=== PATIENT | male | born 1955 | race Caucasian/White ===

== ENCOUNTER 2017-03-29 07:11 | Observation (INO) | payer OTHER ==
[2017-03-29] VITALS (8 sets, daily range): BP systolic 151–169; BP diastolic 88–101; PULSE 61–67; RESP 16–18; TEMP 97.6–98.4; O2SAT 96–100
[~2017-03-29] VITALS: Ht 180.3 cm; Wt 78.6 kg
[2017-03-29 07:35] LABS: AUTOMATED NEUTROPHIL # 2.5 TH/MM3 (1.8-7.7); BASOPHIL % 0.7 % (0.0-2.0); EOSINOPHIL # 0.1 TH/MM3 (0-0.4); HEMATOCRIT 44.3 % (39.0-51.0); HEMOGLOBIN 14.7 GM/DL (13.0-17.0); LYMPH % 32.1 % (9.0-44.0); LYMPHOCYTE # 1.5 TH/MM3 (1.0-4.8); MEAN CELL VOLUME 99.5 FL (80.0-100.0); MEAN CORPUSCULAR HGB CONC 33.2 % (32.0-36.0); MEAN PLATELET VOLUME 7.6 FL (7.0-11.0); MONO % 10.4 % (0.0-8.0); MONOCYTE # 0.5 TH/MM3 (0-0.9); NEUT % 54.8 % (16.0-70.0); PLATELET COUNT 243 TH/MM3 (150-450); RED BLOOD COUNT 4.45 MIL/MM3 (4.50-5.90); RED CELL DISTRIBUTION WIDTH 12.5 % (11.6-17.2); WHITE BLOOD COUNT 4.6 TH/MM3 (4.0-11.0)
--- NOTE | 2017-03-29 07:37 | RADRPT ---
EXAM DATE/TIME: 03/29/2017 07:18 [place] COMPARISON: No previous studies available for comparison. INDICATIONS : Chest discomfort. MEDICAL HISTORY : None. SURGICAL HISTORY : None. ENCOUNTER: Initial ACUITY: 1 day PAIN SCORE: 3/10 LOCATION: Bilateral chest FINDINGS: A single view of the chest demonstrates the lungs to be symmetrically aerated without evidence of mas s, infiltrate or effusion. The cardiomediastinal contours are unremarkable. Osseous structures are intact. CONCLUSION: No acute disease. Abel Chawla MD on March 29, 2017 at 7:35 Board Certified Radiologist. This report was verified electronically.
[2017-03-29 07:44] LABS: CHLORIDE 102 MEQ/L (98-107); SODIUM (NA) 137 MEQ/L (136-145)
[2017-03-29 07:46] LABS: CALCIUM 8.9 MG/DL (8.5-10.1)
[2017-03-29 07:47] LABS: BLOOD UREA NITROGEN 19 MG/DL (7-18); GLUCOSE,RANDOM 102 MG/DL (74-106)
[2017-03-29 07:50] LABS: CREATININE 0.93 MG/DL (0.60-1.30); GLOMERULAR FILTRATION RATE 83 ML/MIN (>89)
[2017-03-29 07:55] LABS: TROPONIN I LESS THAN 0.02 NG/ML (0.02-0.05)
--- NOTE | 2017-03-29 07:55 | PD ---
HPI Chief Complaint: Chest Pain Time Seen by Provider: 07:26 Travel History International Travel<30 days: No Contact w/Intl Traveler<30days: No Traveled to known affect area: No History of Present Illness HPI 62 year old male in ED presents with left sided non radiating chest pain with sudden onset one hour prior to arrival, now resolved associated with tingling in bilateral fingers. Patient was standing in the shower this morning when he felt a "sudden punch to his chest" and mildly short of breathe. The pain lasted several seconds and he was able to drive himself to the ER. He reports one similar episode in his 30s in which he went to the ER with no concerning findings at that time. He reports having chest congestion with sneezing and dry cough this week. He denies vomiting, fevers, abd pain, recent travel, and leg swelling. He is a non smoker, smoker drinking. He did not receive flu shot this year. Pain is now mostly gone, about a 1-2 out of 10. Risk Factors:[None] Modifying Factors:[None] Associated sign and symptoms:chest pain with shortness of breathe and nausea, no vomiting, no diaphoresis, no fevers. PFSH Past Medical History Medical History: Denies Significant Hx Tetanus Vaccination: Unknown Influenza Vaccination: No Past Surgical History Surgical History: No Previous Surgery Social History Alcohol Use: Yes (OCASS) Tobacco Use: No Substance Use: No Allergies-Medications (Allergen,Severity, Reaction): Coded Allergies: No Known Allergies (Unverified , 03/29/17) Reported Meds & Prescriptions Reported Meds & Active Scripts Active No Active Prescriptions or Reported Medications Review of Systems Except as stated in HPI: all other systems reviewed are Neg Physical Exam Narrative GENERAL: Well developed male in ED appears his stated age, no acute distress. SKIN: Warm and dry. HEAD: Atraumatic. Normocephalic. EYES: Pupils equal and round. No scleral icterus. No injection or drainage. ENT: No nasal bleeding or discharge. Mucous membranes pink and moist. NECK: Trachea midline. No JVD. Supple. CARDIOVASCULAR: Regular rate and rhythm, no murmurs rubs or gallops. Pulses are present and equal bilaterally. RESPIRATORY: No accessory muscle use. Clear to auscultation. Breath sounds equal bilaterally. GASTROINTESTINAL: Abdomen soft, non-tender, nondistended. Hepatic and splenic margins not palpable. MUSCULOSKELETAL: Extremities without clubbing, cyanosis, or edema. No obvious deformities. NEUROLOGICAL: Awake and alert. No obvious cranial nerve deficits. Motor grossly within normal limits. Five out of 5 muscle strength in the arms and legs. Normal speech. PSYCHIATRIC: Appropriate mood and affect; insight and judgment normal. Data Data Last Documented VS Vital Signs Date Time Temp Pulse Resp B/P (MAP) Pulse Ox O2 Delivery O2 Flow Rate FiO2 03/29/17 07:54 67 18 151/101 (118) 99 Room Air 03/29/17 07:17 98.0 Orders Orders Electrocardiogram (03/29/17 07:15) Complete Blood Count With Diff (03/29/17 07:15) Basic Metabolic Panel (Bmp) (03/29/17 07:15) Ckmb (Isoenzyme) Profile (03/29/17 07:15) Troponin I (03/29/17 07:15) Chest, Single Ap (03/29/17 07:15) Iv Access Insert/Monitor (03/29/17 07:15) Ecg Monitoring (03/29/17 07:15) Oxygen Administration (03/29/17 07:15) Oximetry (03/29/17 07:15) CKMB (03/29/17 07:20) CKMB% (03/29/17 07:20) Admit Order (Ed Use Only) (03/29/17 08:15) Labs Laboratory Tests Test 03/29/17 07:20 White Blood Count 4.6 TH/MM3 Red Blood Count 4.45 MIL/MM3 Hemoglobin 14.7 GM/DL Hematocrit 44.3 % Mean Corpuscular Volume 99.5 FL Mean Corpuscular Hemoglobin 33.0 PG Mean Corpuscular Hemoglobin Concent 33.2 % Red Cell Distribution Width 12.5 % Platelet Count 243 TH/MM3 Mean Platelet Volume 7.6 FL Neutrophils (%) (Auto) 54.8 % Lymphocytes (%) (Auto) 32.1 % Monocytes (%) (Auto) 10.4 % Eosinophils (%) (Auto) 2.0 % Basophils (%) (Auto) 0.7 % Neutrophils # (Auto) 2.5 TH/MM3 Lymphocytes # (Auto) 1.5 TH/MM3 Monocytes # (Auto) 0.5 TH/MM3 Eosinophils # (Auto) 0.1 TH/MM3 Basophils # (Auto) 0.0 TH/MM3 CBC Comment DIFF FINAL Differential Comment Blood Urea Nitrogen 19 MG/DL Creatinine 0.93 MG/DL Random Glucose 102 MG/DL Calcium Level 8.9 MG/DL Sodium Level 137 MEQ/L Potassium Level 3.9 MEQ/L Chloride Level 102 MEQ/L Carbon Dioxide Level 30.0 MEQ/L Anion Gap 5 MEQ/L Estimat Glomerular Filtration Rate 83 ML/MIN Total Creatine Kinase 165 U/L Creatine Kinase MB 11.1 NG/ML Troponin I LESS THAN 0.02 NG/ML MDM Medical Decision Making Medical Screen Exam Complete: Yes Emergency Medical Condition: Yes Medical Record Reviewed: Yes Interpretation(s) EKG shows NSR, no ST elevation or depression, and no arrhythmias. No significant T-wave inversions. Laboratory Tests Test 03/29/17 07:20 Red Blood Count 4.45 MIL/MM3 (4.50-5.90) Monocytes (%) (Auto) 10.4 % (0.0-8.0) Blood Urea Nitrogen 19 MG/DL (7-18) Estimat Glomerular Filtration Rate 83 ML/MIN (>89) Creatine Kinase MB 11.1 NG/ML (0.5-3.6) Troponin I LESS THAN 0.02 NG/ML Last 24 hours Impressions Chest X-Ray 03/29/17 0715 Signed Impressions: Service Date/Time: Wednesday, March 29, 2017 07:18 - CONCLUSION: No acute disease. Abel Chawal MD Differential Diagnosis Chest pain; STEMI vs non-STEMI vs angina vs PE vs aortic dissection vs anxiety vs pneumonia Narrative Course EKG did not show any significant dysrhythmias or ST changes. Chest x-ray was fairly unremarkable. Troponins are negative. Metabolic panel is unremarkable. His CK-MB is mildly elevated. At this point, my plan would be to admit the patient for further evaluation of chest pain. Case was discussed with Dr. Zavala for admission. Diagnosis Primary Impression: Chest pain Admitting Information Admitting Physician Requests: Admit Scripts No Active Prescriptions or Reported Meds Jennifer Bales MD Mar 29, 2017 07:55
[2017-03-29] MEDS ORDERED: ACETAMINOPHEN 500 MG CPLT PO PRN (08:30)
[2017-03-29] MEDS ORDERED: SODIUM CHLORIDE 0.9% FLUSH 10 ML FLUSH IV FLUSH PRN (08:30)
[2017-03-29] MEDS ORDERED: ONDANSETRON HCL 4 MG/2 ML VIAL IV PUSH PRN (08:30)
[2017-03-29] MEDS ORDERED: NITROGLYCERIN 0.4 MG SL 25 TABS/BTL SL PRN (08:30)
[2017-03-29] MEDS ORDERED: ASPIRIN 325 MG TAB PO SCH (09:00)
[2017-03-29] MEDS ORDERED: SODIUM CHLORIDE 0.9% FLUSH 10 ML FLUSH IV FLUSH SCH (09:00)
--- NOTE | 2017-03-29 09:05 | HHI.HP ---
[facility] Service [facility] Primary Care Physician Addie Linares MD Admission Diagnosis Chest pain Diagnoses: Chief Complaint: Chest pain Travel History International Travel<30 Days: No Contact w/Intl Traveler <30 Da: No Traveled to Known Affected Are: No History of Present Illness This is a pleasant 62-year-old male patient with no known medical history who presented to the ED with complaints of chest pain. Patient states that he developed a tingling in his bilateral fingers and hands that moved up along his arms this morning. He decided shower and during that time he developed a sudden chest pain that felt like a punch to his chest. Patient does admit to associated shortness of breath with this pain, rates the pain a five out of ten on pain scale at its worst, patient states it lasted a few seconds and then pain subsided. At the time of assessment patient states that the pain is almost gone, does admit to a dull achy feeling. Does admit to recent chest congestion and cough during the last week. Denies any recent fever, chills, abdominal pain, nausea or vomiting. Denies any history of tobacco use. Denies any family medical history. Does not follow with a payroll assistant. Denies any history of stress test. PCP is Dr. Linares. Review of Systems Constitutional: DENIES: Fever, Chills Eyes: DENIES: Blurred vision, Diplopia Respiratory: COMPLAINS OF: Shortness of breath, DENIES: Cough Cardiovascular: COMPLAINS OF: Chest pain, DENIES: Palpitations Gastrointestinal: DENIES: Abdominal pain, Black stools, Bloody stools, Constipation, Diarrhea, Nausea, Vomiting Musculoskeletal: DENIES: Joint pain Integumentary: DENIES: Abnormal pigmentation Hematologic/lymphatic: DENIES: Bruising Immunologic/allergic: DENIES: Eczema Neurologic: DENIES: Abnormal gait Psychiatric: COMPLAINS OF: Anxiety Except as stated in HPI: all other systems reviewed are Neg Past Family Social History Past Medical History No known medical history. Past Surgical History Right wrist surgery with metal plate placement Reported Medications Denies any medication use. Allergies: Coded Allergies: No Known Allergies (Unverified , 03/29/17) Active Ordered Medications Current Medications Medications (Trade) Dose Ordered Sig/Krysta Route Start Time Stop Time Status Last Admin (NS Flush) 2 ml UNSCH PRN IV FLUSH 03/29/17 08:30 (NS Flush) 2 ml BID IV FLUSH 03/29/17 09:00 03/29/17 08:47 (Tylenol) 500 mg Q4H PRN PO 03/29/17 08:30 (Zofran Inj) 4 mg Q6H PRN IV PUSH 03/29/17 08:30 (Nitrostat Sl) 0.4 mg Q5M PRN SL 03/29/17 08:30 (Aspirin) 325 mg DAILY PO 03/29/17 09:00 03/29/17 08:46 Family History Denies any family medical history of cardiovascular disease. Mother had lung, brain and bone cancer. Social History Denies any tobacco or illicit drug use. Admits to occasional alcohol use. Physical Exam Vital Signs Vital Signs Date Time Temp Pulse Resp B/P (MAP) Pulse Ox O2 Delivery O2 Flow Rate FiO2 03/29/17 08:56 03/29/17 08:23 66 18 155/88 (110) 98 Room Air 03/29/17 07:54 67 18 151/101 (118) 99 Room Air 03/29/17 07:25 65 97 Room Air 03/29/17 07:20 100 Room Air 03/29/17 07:20 100 Room Air 03/29/17 07:17 98.0 65 18 169/100 (123) 97 Physical Exam GENERAL: Well-nourished, well-developed patient in NAD. SKIN: Warm and dry. No rash. HEAD: Normocephalic. Atraumatic. EYES: Pupils equal and round. No scleral icterus. No injection or drainage. ENT: No nasal bleeding or discharge. Mucous membranes pink and moist. NECK: Supple. Trachea midline. CARDIOVASCULAR: Regular rate and rhythm. S1, S2 noted. No murmur appreciated. No reproducible chest pain to palpation. RESPIRATORY: No accessory muscle use. Clear to auscultation. Breath sounds equal bilaterally. GASTROINTESTINAL: Abdomen soft, non-tender, nondistended. Normoactive bowel sounds x4. MUSCULOSKELETAL: No obvious deformities. Extremities without clubbing, cyanosis , or edema. No pain to range of motion of bilateral shoulders. NEUROLOGICAL: Awake and alert. No obvious cranial nerve deficits. Motor grossly within normal limits. 5/5 muscle strength in bilateral upper and lower extremities. Normal speech. PSYCHIATRIC: Appropriate mood and affect; insight and judgment normal. Laboratory Laboratory Tests Test 03/29/17 07:20 White Blood Count 4.6 Red Blood Count 4.45 Hemoglobin 14.7 Hematocrit 44.3 Mean Corpuscular Volume 99.5 Mean Corpuscular Hemoglobin 33.0 Mean Corpuscular Hemoglobin Concent 33.2 Red Cell Distribution Width 12.5 Platelet Count 243 Mean Platelet Volume 7.6 Neutrophils (%) (Auto) 54.8 Lymphocytes (%) (Auto) 32.1 Monocytes (%) (Auto) 10.4 Eosinophils (%) (Auto) 2.0 Basophils (%) (Auto) 0.7 Neutrophils # (Auto) 2.5 Lymphocytes # (Auto) 1.5 Monocytes # (Auto) 0.5 Eosinophils # (Auto) 0.1 Basophils # (Auto) 0.0 CBC Comment DIFF FINAL Differential Comment Blood Urea Nitrogen 19 Creatinine 0.93 Random Glucose 102 Calcium Level 8.9 Sodium Level 137 Potassium Level 3.9 Chloride Level 102 Carbon Dioxide Level 30.0 Anion Gap 5 Estimat Glomerular Filtration Rate 83 Total Creatine Kinase 165 Creatine Kinase MB 11.1 Troponin I LESS THAN 0.02 Result Diagram: 03/29/1771903/29/17719 Imaging Last Impressions Chest X-Ray 03/29/17714 Signed Impressions: Service Date/Time: Wednesday, March 29, 2017 07:18 - CONCLUSION: No acute disease. Abel Chawla MD Septic Shock Reassessment Septic shock perfusion: reassessment completed Caprini VTE Risk Assessment Caprini VTE Risk Assessment: Mod/High Risk (score >= 2) Caprini Risk Assessment Model Point Value = 1 Point Value = 2 Point Value = 3 Point Value = 5 Age 41-60 Minor surgery BMI > 25 kg/m2 Swollen legs Varicose veins or History of unexplained or recurrent spontaneous Oral contraceptives or hormone replacement Sepsis (< 1 month) Serious lung disease, including pneumonia (< 1 month) Abnormal pulmonary function Acute myocardial infarction Congestive heart failure (< 1 month) History of inflammatory bowel disease Medical patient at bed rest Age 61-74 Arthroscopic surgery Major open surgery (> 45 min) Laparoscopic surgery (> 45 min) Malignancy Confined to bed (> 72 hours) Immobilizing plaster cast Central venous access Age >= 75 History of VTE Family history of VTE Factor V Leiden Prothrombin [id number] Lupus anticoagulant Anticardiolipin antibodies Elevated serum homocysteine Heparin-induced thrombocytopenia Other congenital or acquired thrombophilia Stroke (< 1 month) Elective arthroplasty Hip, pelvis, or leg fracture Acute spinal cord injury (< 1 month) Prophylaxis Regimen Total Risk Factor Score Risk Level Prophylaxis Regimen 0-1 Low Early ambulation 2 Moderate Order ONE of the following: *Sequential Compression Device (SCD) *Heparin 5000 units SQ BID 3-4 Higher Order ONE of the following medications: *Heparin 5000 units SQ TID *Enoxaparin/Lovenox 40 mg SQ daily (WT < 150 kg, CrCl > 30 mL/min) *Enoxaparin/Lovenox 30 mg SQ daily (WT < 150 kg, CrCl > 10-29 mL/min) *Enoxaparin/Lovenox 30 mg SQ BID (WT < 150 kg, CrCl > 30 mL/min) AND/OR *Sequential Compression Device (SCD) 5 or more Highest Order ONE of the following medications: *Heparin 5000 units SQ TID (Preferred with Epidurals) *Enoxaparin/Lovenox 40 mg SQ daily (WT < 150 kg, CrCl > 30 mL/min) *Enoxaparin/Lovenox 30 mg SQ daily (WT < 150 kg, CrCl > 10-29 mL/min) *Enoxaparin/Lovenox 30 mg SQ BID (WT < 150 kg, CrCl > 30 mL/min) AND *Sequential Compression Device (SCD) Assessment and Plan Problem List: (1) Chest pain ICD Code: R07.9 - Chest pain, unspecified Status: Acute Plan: Patient has been admitted to the chest pain center for observation. Serial EKGs and serial troponins have been ordered for ruling out ACS purposes. Troponin x 1 negative, follow trend. EKG reviewed showing normal sinus rhythm, heart rate controlled. No ST changes to indicate ischemia. Chest pain has now resolved. Continue cardiac telemetry, monitor any arrhythmias. CBC and BMP reviewed essentially unremarkable. Chest x-ray reviewed showing no acute disease. Lipid panel ordered, pending. Follow. Patient was given aspirin in the ED. Nitroglycerin glycerin sublingual available when necessary. Patient will undergo a nuclear cardiac stress test to further rule out any ischemia if ACS ruled out. Further recommendations and hospitalization will depend on nuclear stress imaging results. Continue to follow. Patient is stable at this time and agreeable to the plan. Assessment and Plan Patient underwent cardiac treadmill stress tests, imaging reviewed by on-call payroll assistant, Dr. Echeverria, showing no ischemia. Couplets noted. Patient will be discharged home today to follow-up with primary care physician upon discharge. Patient encouraged to return to the ED if chest pain symptoms persist or worsen. Patient is stable at this time and agreeable to the plan. Awaiting lipid panel. Patient is requesting to go with request to follow up with LIPID PANEL results tomorrow. Told patient will call him tomorrow and if needed prescribe a statin. Problem Qualifiers (1) Chest pain: Qualified Codes: R07.9 - Chest pain, unspecified Leticia Jolly Mar 29, 2017 09:05
[2017-03-29 11:02] LABS: TROPONIN I LESS THAN 0.02 NG/ML (0.02-0.05)
--- NOTE | 2017-03-29 12:57 | EKG ---
Date Performed: 03/29/2017 Time Performed: 10:21:05 PTAGE: 62 years EKG: SINUS BRADYCARDIA BORDERLINE ECG Since PREVIOUS TRACING , no significant change noted PREVIOUS TRACIN03/29/2017 07.23 DOCTOR: Lauren Echeverria Interpretating Date/Time 03/29/2017 12:55:18
[2017-03-29] MEDS ORDERED: amLODIPine BESYLATE 5 MG TAB PO SCH (13:45)
--- NOTE | 2017-03-29 13:45 | HHI.DCPOC ---
Discharge Care Plan Diagnosis: (1) Chest pain Goals to Promote Your Health * To prevent worsening of your condition and complications * To maintain your health at the optimal level Directions to Meet Your Goals Take your medications as prescribed Follow your dietary instruction Follow activity as directed Keep your appointments as scheduled Take your immunizations and boosters as scheduled If your symptoms worsen call your PCP, if no PCP go to Urgent Care Center or Emergency Room Smoking is Dangerous to Your Health. Avoid second hand smoke Call the 24-hour hour crisis hotline for domestic abuse at Leticia Jolly Mar 29, 2017 13:45
[2017-03-29] MEDS ORDERED: AMLO5TAB2 PO (13:46)
[2017-03-29] MEDS ORDERED: ASPI-516 CHEW (13:47)
[2017-03-29 17:19] LABS: CHOLESTEROL/ HDL RATIO 1.94 RATIO; HDL CHOLESTEROL 115.4 MG/DL (40.0-60.0)
--- NOTE | 2017-03-29 17:43 | EKG ---
Date Performed: 03/29/2017 Time Performed: 07:23:56 PTAGE: 62 years EKG: Sinus rhythm NORMAL ECG DOCTOR: Lauren Echeverria Interpretating Date/Time 03/29/2017 17:40:55
[2017-03-30] MEDS ORDERED: ATOR20TA15 PO (17:15)
== END 2017-03-29 16:00 | disposition home or self-care (01) ==
LOC: PHED 07:11 → PHEDA 08:15 → PH3A 09:11
PROVIDERS: ADMIT Hospitalist; ATTEND Hospitalist
DX: R07.9 Chest pain, unspecified (principal); R20.2 Paresthesia of skin; R06.02 Shortness of breath; R05 Cough; R09.89 Other specified symptoms and signs involving the circulatory and respiratory systems; F41.9 Anxiety disorder, unspecified; R00.1 Bradycardia, unspecified
CPT/HCPCS: 71045; 80048; 80061; 82550; 82552; 84484; 85025; 93005; 93017; 99285; G0378